=== PATIENT | male | born 1960 | race Caucasian/White ===

== ENCOUNTER → 2016-07-05 | Outpatient (CLI) | payer OTHER, BC ==
[~2016-07-05] MED LIST: AMBIEN10 MG PO; ASCORBIC ACID500 M3 PO; Aspirin E.C. PO; CARDURA8 MG PO; CARISOPRODOL250 MG PO; CELEBREX100 MG PO; CELEXA20 MG PO; CEPHALEXIN500 MG PO; CITALOPRAM HBR20 MG PO; COLACE50 MG PO; COUMADIN1 MG PO; COUMADIN3 MG PO; Cardura PO; DILAUDID2 MG PO; DOCUSATE SODIU100 MG PO; DOXAZOSIN MESYLA8 MG PO; FINASTERIDE5 MG PO; FOLIC ACID1 MG PO; GABAPENTIN600 MG PO; GEMFIBROZIL600 MG PO; IRON325 M1 PO; KEFLEX500 MG PO; LISINOPRIL20 MG PO; LO-DOSE ASPIRIN81 M1 PO; Lopid PO; MELOXICAM15 MG PO; MOTRIN600 MG PO; NEURONTIN600 MG PO; OXYCODONE HCL5 MG PO; PERCOCET 5/31 TABLET PO; POTASSIUM GLUCO2 MEQ PO; PROTONIX40 MG PO; RIFAMPIN300 MG PO; ROBAXIN750 MG PO; ROPINIROLE HCL0.5 MG PO; SENNA-TIME S T1 EACH PO; SKELAXIN800 MG PO; ST. JOSEPH ASPI81 MG PO; THERAGRAN1 TABLET PO; TYLENOL REGULA325 MG PO; ULTRAM50 MG PO; WARFARIN SODIUM1 MG PO; WELLBUTRIN SR200 MG PO; WELLBUTRIN100 MG PO; ZESTRIL20 MG PO
== END | disposition home or self-care (01) ==
LOC: CDC 15:18
DX: Z01.810 Encounter for preprocedural cardiovascular examination (principal)
CPT/HCPCS: 93000